=== PATIENT | female | born 1975 | race Caucasian/White ===

== ENCOUNTER 2024-08-18 08:10 | Outpatient (AMB) | payer OTHER, SELFPAY ==
[2024-08-18 08:13] VITALS: BP 122/70; PULSE 76; O2SAT 100; BMI 26.3
--- NOTE | 2024-08-18 08:13 | MHC.OFFVIS ---
Vital Signs 08/18/24 08:13 Height 5 ft 7 in Weight 168 lb BMI 26.3 BP 122/70 Blood Pressure Location Lt brachial Position Sitting Pulse 76 Pulse Source Pulse Oximeter Pulse Oximetry (%) 100 Oxygen Delivery Method Room Air Intake Visit Reasons: Raynauds/CM APT Intake Note: Patient presents for follow up on Raynaud's today Allergies No Known Allergies Allergy (Verified 08/18/24 08:16) HPI HPI Raynauds/CM APT: Details: R IP joint in hands intermittent swelling treated with usually 4 days of naproxen 500mg BID. occurs once every other or 3 months. Raynauds active in right 2nd finger with cold weather. Denies fevers, rash, abdominal pain or any new infections. [facility] Medical History (Updated 08/18/24 @ 08:58 by Kwan Deal MD) delivery delivered Still's disease Raynauds disease Surgical History (Updated 08/18/24 @ 08:19 by Rosey De La O CMA) H/O arthroscopic knee surgery Family History (Updated 08/18/24 @ 08:19 by Rosey De La O CMA) Father Stroke Social History (Updated 08/18/24 @ 08:20 by Rosey De La O CMA) Alcohol intake: current Alcohol intake frequency: 0-2 drinks per day Alcohol type: wine Patient Tobacco Use Status: Never used Tobacco Review of Systems Const All systems reviewed & are unremarkable except as noted in HPI and below Physical Exam Vital Signs: Last Vital Signs Pulse 76 08/18/24 08:13 BP 122/70 08/18/24 08:13 Pulse Ox 100 08/18/24 08:13 Oxygen Delivery Method Room Air 08/18/24 08:13 BMI result Body Mass Index 26.3 Const Other: General: Comfortable CVS: RRR Respiratory: clear to auscultation bilaterally. Good respiratory effort Skin: No lesions seen MSK:Tender R IP joint hand with slight swelling. Good ROM UE and LE. Assessment & Plan Assessment & Plan (1) Adult-onset Still disease: Comment: She has history of adult onset Still's disease admitted to [facility] 06/28/2028 to 07/24/2028 with 1st episode controlled on naproxen 500 mg b.i.d.. She presented with persistent daily high-grade fevers, leukocytosis, polyarthritis, evanescent maculopapular rash, sore throat, splenomegaly on CT abdomen/pelvis, elevated LFTs , negative FERNANDO/RF. Negative infectious and malignancy workup. She has had recurrent inflammatory arthritis flares resolving with naproxen 500 mg b.i.d.. At this time she has has intermittent pain and swelling of right IP joint in her hand. Code(s): M06.1 - Adult-onset Still's disease Category: Medical Plan: Continue to use naproxen 500 mg b.i.d. to treat joint pain and swelling. If flares become more frequent, she will call office. 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 Code(s): I73.01 - Raynaud's syndrome with gangrene Category: Medical Plan: We discussed conservative management Return to clinic 6 months or sooner if needed Orders: Orders Erythrocyte Sedimentation Rate Today M06.1 - Adult-onset Still's disease C Reactive Protein Today M06.1 - Adult-onset Still's disease Alanine Aminotransferase Today Z79.60 - half-way (current) use of unspecified immunomodulators and immunosuppressants Creatinine Today Z79.60 - half-way (current) use of unspecified immunomodulators and immunosuppressants XR hand RT min 3V Today M06.1 - Adult-onset Still's disease Aspartate Amino Transferase Today Z79.60 - 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
--- OUTSIDE RECORDS SUMMARY | 2024-08-19 18:44 | XMS_ITS | Continuity of Care Document ---
Author Organization [facility] Address [address] [place] [address]- Care Team Providers Care Director Educational Radio Name Role Phone Aniya Eldridge MD [id number] Date[facility]s): [facility] - 07/22/24 [facility] [address], [place] [address] Attending Physician: Aniya Eldridge MD Encounter Type: Pre Office Visit Allergies, Adverse Reactions, Alerts No Known Allergies Immunizations Given and Recorded Vaccine Date Status Refusal Reason influenza virus vaccine, inactivated 1 06/18/23 Gi jacinto influenza virus vaccine, inactivated 05/31/21 Leoncio rded influenza virus vaccine, inactivated 06/06/20 Leoncio rded influenza virus vaccine, inactivated 05/10/17 Leoncio rded influenza virus vaccine, inactivated 06/25/16 Give n influenza virus vaccine, inactivated 06/22/15 Give n influenza virus vaccine, inactivated 2 07/26/14 Re corded influenza virus vaccine, inactivated 3 05/01/12 Gi jacinto influenza virus vaccine, inactivated 4 09/19/11 Gi jacinto influenza virus vaccine, inactivated 07/24/10 Leoncio rded influenza virus vaccine, inactivated 5 10/10/09 Gi jacinto influenza virus vaccine, inactivated 07/07/08 Leoncio rded SARS-CoV-2 (COVID-19) mRNA BNT-162b2 vac 09/16/21 Recorded SARS-CoV-2 (COVID-19) mRNA-1273 vaccine 01/05/21 R ecorded SARS-CoV-2 (COVID-19) mRNA-1273 vaccine 12/08/20 R ecorded Influenza Virus Vaccine (oldterm) 06/19/19 Recorde d tetanus/diphtheria/pertussis, acel(Tdap) 6 12/29/10 Given influ virus vac, H1N1, inactive(oldterm) 7 10/10/09 Given Tet/Diphth/Acel, Pertussis (oldterm) 8 10/10/09 Gi jacinto tetanus-diphtheria toxoids (Td) 10/01/00 Recorded 1Result Comment: [facility]- [id number] 2Result Comment: [07/26/2014] per pt 3Admin Note: given w/ o incident 4[facility] Note[facility] 5Admin Note: per pt 6Admin Note: VIS Given 7Admin Note: INFO SHEET GIVEN 8Admin Note: INFO SHEET GIVEN GIVEN W/O INCIDENT Medications Afrin No Drip Severe Congestion 0.05% nasal spray 1 spray, Daily, 0 Refills, Maintenance, 01/07/24 6:55:00 AM EDT, Partial fill upon patient request if the prescription is for a schedule II opioid drug. Start Date: 01/07/24 Status: Ordered Repeat number: 1 Emgality Prefilled Pen 120 mg/mL subcutaneous solution = 120 mg, Subcutaneous Injection, Once, Maintenance Dose. To begin 28 days after loading dose, # 1 kit, 7 Refills, Soft Stop, 12/06/23 1:46:00 PM EDT, [facility], Aimovig is helpful but giving some side effects., 170.18, cm, 07/11/23 8:03:00 EDT, Height Start Date: 12/06/23 Status: Ordered Quantity: 1.0 Unit: kit Repeat number: 8 Multivitamin Daily, 0 Refills, Maintenance, 01/20/21 2:21:00 PM EDT, Partial fill upon patient request if the prescription is for a schedule II opioid drug. Start Date: 01/20/21 Status: Ordered Repeat number: 1 rizatriptan 10 mg oral tablet 1 tablet = 10 mg, By Mouth, Once, PRN for migraine headache, take at onset of bad migraine. No refill in under 30 days,, # 9 tablet, 6 Refills, Soft Stop, 12/06/23 1:41:00 PM EDT, Tablet, [facility], Sumatriptan was ineffective, Zolmitriptan was with mixed results. Rizatriptan is better than the others, 170.18, cm, 07/11/23 8:03:00 EDT, Height Start Date: 12/06/23 Status: Ordered Quantity: 9.0 Unit: tablet Repeat number: 7 ZyrTEC 10 mg oral tablet 1 tablet = 10 mg, By Mouth, Daily, 0 Refills, Maintenance, 01/20/21 2:21:00 PM EDT, Partial fill upon patient request if the prescription is for a schedule II opioid drug. Start Date: 01/20/21 Status: Ordered Repeat number: 1 Problem List Condition Confirmation Course Effective Dates Status Health St atus Informant Adult Still's disease Confirmed Active Insomnia Confirmed Active Major depression Confirmed Active Classic migraine Confirmed Active Unexplained infertility Confirmed Active Urinary incontinence Confirmed Active Social History Social History Type Response Smoking Status Never smoker entered on: 08/25/13 Sex Female Sex Representation Female (finding) Patient Care team information Care Team Personnel Name: Aniya Eldridge MD Position: [facility] Physician - Primary Care Member Role: PCP Address: [address] [place] [address] Adult and Pediatric [facility] [address] Telecom: Care Team Related Persons Name: ERLINDA CONDE Name: SHARON SINCLAIR Insurance Providers Guarantor name: KAYLEE SINCLAIR Health Plan Information #: 1 Payer: [employer] Member Number: [id number] Policy Number: NA Group Number: [id number] Health Plan Information #: 2 Payer: [employer] Member Number: [id number] Policy Number: NA Group Number: [id number]
--- OUTSIDE RECORDS SUMMARY | 2024-08-19 18:44 | XMS_ITS | Data Portability ---
Author Organization [facility], [address] Address [address] [place] [address] Assessment No assessment recorded. Plan of Treatment Reminders Order Date Submit Date Provider Last Modified By Organization Details Last Modified Time Details Appointments None recorded . Lab rapid strep group A, throat 023 01/21/20 [email or web address] [place], [address], 11:45:26 Referral None recorded . Procedures None recorded . Surgeries None recorded . Imaging None recorded . Medication Orders None recorded . Patient TargetsNo targets recorded. Patient Instructions Encounter Date Encounter Id Patient Instructions Last Modified By Organization Details Last Modified Time 01/20/2023 [id number] sore throat: car e instructions [email or web address] Not available 01/20/2023 11:45:26 Reason for Referral None Reported. Results Created Date Observation Date Name Description Value Unit Range Abnormal Flag Note LastModifiedBy Organization Detail LastModifiedTime 01/21/2001/20/2023 rapid strep group A, throa t Unknown Analyte Normal = Negati ve Not Available [address] [place], [address], 01/20/2023 11:23:41 01/21/2001/20/2023 rapid strep group A, throa t Unknown Analyte negati ve Not Available [address] [place], [address], 01/20/2023 11:23:41 Result Notes None recorded. Problems Name Problem SNOMED Code Status Onset Date Resolution Date Notes Provider Name and Address Organization Details Recorded Time Migraine 89020924 Active 023 Kirstin velasquez [facility] 01/20/2023 11:21:41 Problem Notes None recorded. Procedures Surgical History Date Name Laterality Status Provider Name and Address Organization Details Recorded Time 1 delivery completed [facility]irstin [facility] [place] [facility] 01/20/2023 11:22:06 5 Knee arthroscopy/s urgery completed Kirstin Chavarria [place] - [facility] 01/20/2023 11:22:01 Imaging Results None recorded. Procedure Notes None recorded. Medical Equipment None Reported. Allergies No known drug allergies Medications Name Sig Start Date Stop Date Status Note LastModified by Organization Details LastModified Time rizatriptan 10 mg tablet active Not Available Not Available No t Available nortriptyline 25 mg capsule active Not Available Not Availabl e Not Available pantoprazole 40 mg tablet,delayed release active Not Available Not Available Not Available nortriptyline 50 mg capsule active Not Available Not Availabl e Not Available Nasacort active Not Available Not Avai lable Not Available Flowflex COVID-19 Antigen Home Test kit active Not Available Not Available Not Available Vitals Date Recorded Body height Body mass index (BMI) Body weight Body temperature Respiratory rate Heart rate Oxygen saturation Oxygen saturation in Arterial blood by Pulse oximetry Systolic blood pressure Diastolic blood pressure Provider Name and Address Organization Details Last Updated DateTime 3 170.18 cm 29.8 kg/m2 26734.5 5 g 97.3 [degF] 16 /min 100 /min 99 % 99 % 114 mm[Hg] 82 mm[Hg] Kirstin Chavarria [facility] 3 11:23:35 Social History None recorded. Functional Status None recorded. Mental Status None recorded. Family History Nothing Reported. Medical History No medical history recorded. Gynecological History Statement/Question Response Is there any chance of ? No Obstetrics History GPAL:G 0 P 0 0 0 0 Past Encounters Encounter ID Performer Location Encounter Start Date Encounter Closed Date Diagnosis/Indication Diagnosis SNOMED-CT Code Diagnosis ICD10 Code [id number] [address] [place] [address] 10/29/2020 19:36:05 10/29/2020 20:21:33 [id number] Daniel Starr [place] [address] [place] [address] 01/20/2023 10:48:31 01/20/2023 11:54:26 Acute pharyngitis 034066330 J02.9 Health Concerns Section Related Observation LastModified by Organization Detai ls LastModified Time None Recorded Concern Status LastModified by Organization Details LastModified Time None Recorded Advance Directives Directive None Recorded Payers Encounter Date Sequence Insurance Name Policy Number Policy John Covered Member ID John Member ID Guarantor Name 10/29/2020 1 [employer] - CHOICE FUND - OPEN ACCESS PLUS [id number] Radhames Theroux [id number] 1 Radhames Theroux 01/20/2023 1 [employer] - CHOICE FUND - OPEN ACCESS PLUS [id number] Radhames Theroux [id number] 1 Radhames Theroux Notes Date Note Type Note Provider Name and Address Organization Details Recorded Time 01/20/2023 text/html Sore throatRepor jaron bypatient.Notes:47 yo female pt c/o sore throat, hurts to swallow, fever, chills x 3 dTemp to 100last te,p yesterdayno temp today No coughNo difficulty breathing or respiratory distressNo wheezeNo CPNo congestionNo ear painNo Abdominal painNo nauseaNo vomitingNp diarrheaNo myalgiaNo fatigueNo rashNo HANo dizzinessNo recent travelNo known sick contacts Daniel Starr DO [address] [place], [address], [place] - [facility] 01/20/2023 11:51:12 OBGyn Episode No OBEpisode recorded.
== END 2024-08-18 08:55 | disposition home or self-care (01) ==
PROVIDERS: PCP Internal Medicine; Visit Provider Internal Medicine Rheumatology
DX: M06.1 Adult-onset Still's disease (principal); Z79.1 Long term (current) use of non-steroidal anti-inflammatories (NSAID); I73.01 Raynaud's syndrome with gangrene
CPT/HCPCS: 99214

== ENCOUNTER 2024-09-07 09:14 | Outpatient (REF) | payer OTHER, SELFPAY ==
--- NOTE | ~2024-09-07 | XR_ITS ---
CLINICAL HISTORY: M06.1 - Adult-onset Stills disease 3 view right hand Comparison: None Findings: No fractures or dislocations. No significant loss of joint space or osteophytes. No erosions. No radiopaque foreign body. IMPRESSION: 1. No acute findings This document has been electronically signed by: James Nunez MD on 09/12/2024 08:21:14
--- OUTSIDE RECORDS SUMMARY | 2024-09-07 09:18 | XMS_ITS | Data Portability ---
Author Organization [facility], [address] Address [address] [place] [address] Assessment No assessment recorded. Plan of Treatment Reminders Order Date Submit Date Provider Last Modified By Organization Details Last Modified Time Details Appointments None recorded . Lab rapid strep group A, throat 023 01/21/20 [email or web address] [place], [address], 11:45:26 Referral None recorded . Procedures None recorded . Surgeries None recorded . Imaging None recorded . Medication Orders None recorded . Patient TargetsNo targets recorded. Patient Instructions Encounter Date Encounter Id Patient Instructions Last Modified By Organization Details Last Modified Time 01/20/2023 [id number] sore throat: car e instructions [email or web address] Not available 01/20/2023 11:45:26 Reason for Referral None Reported. Results Created Date Observation Date Name Description Value Unit Range Abnormal Flag Note LastModifiedBy Organization Detail LastModifiedTime 01/21/2001/20/2023 rapid strep group A, throa t Unknown Analyte Normal = Negati ve Not Available [address] [place], [address], 01/20/2023 11:23:41 01/21/2001/20/2023 rapid strep group A, throa t Unknown Analyte negati ve Not Available [address] [place], [address], 01/20/2023 11:23:41 Result Notes None recorded. Problems Name Problem SNOMED Code Status Onset Date Resolution Date Notes Provider Name and Address Organization Details Recorded Time Migraine 39287967 Active 023 Kirstin velasquez [facility] 01/20/2023 11:21:41 Problem Notes None recorded. Procedures Surgical History Date Name Laterality Status Provider Name and Address Organization Details Recorded Time 1 delivery completed [facility] [place] [facility]/20/2023 11:22:06 5 Knee arthroscopy/s urgery completed Kirstin Chavarria [place] - [facility] 01/20/2023 11:22:01 Imaging Results [...] Updated DateTime 3 170.18 cm 29.8 kg/m2 91262.5 5 g 97.3 [degF] 16 /min 100 /min 99 % 99 % 114 mm[Hg] 82 mm[Hg] Kirstin Chavarria [facility] 3 11:23:35 Social History None recorded. Functional Status None recorded. Mental Status None recorded. Family History Nothing Reported. Medical History No medical history recorded. Gynecological History Statement/Question Response Is there any chance of ? No Obstetrics History GPAL:G 0 P 0 0 0 0 Past Encounters Encounter ID Performer Location Encounter Start Date Encounter Closed Date Diagnosis/Indication Diagnosis SNOMED-CT Code Diagnosis ICD10 Code [id number] [address] [address] [place] [address] 10/29/2020 19:36:05 10/29/2020 20:21:33 [id number] Daniel Starr DO [address] [address] 01/20/2023 10:48:31 01/20/2023 11:54:26 Acute pharyngitis 971657954 J02.9 Health Concerns Section Related Observation LastModified by Organization Detai ls LastModified Time None Recorded Concern Status LastModified by Organization Details LastModified Time None Recorded Advance Directives Directive None Recorded Payers Encounter Date Sequence Insurance Name Policy Number Policy John Covered Member ID John Member ID Guarantor Name 10/29/2020 1 [employer] - CHOICE FUND - OPEN ACCESS PLUS [id number] Radhames Theroux [id number] 1 Radhames Theroux 01/20/2023 1 [employer] - CHOICE FUND - OPEN ACCESS PLUS [id number] Radhames Theroux [id number] 1 Radhames Theroux Notes Date Note Type [...] Starr DO [address] [place], [address], [place] - [facility] 01/20/2023 11:51:12 OBGyn Episode No OBEpisode recorded.
== END 2024-09-07 09:15 | disposition home or self-care (01) ==
LOC: HO.HMGCX 09:14
PROVIDERS: PCP Internal Medicine; Visit Provider Internal Medicine Rheumatology
DX: M06.1 Adult-onset Still's disease (principal)
CPT/HCPCS: 73130

== ENCOUNTER → 2024-09-07 09:17 | Outpatient (BNV) | payer OTHER, SELFPAY | PROVIDERS: PCP Internal Medicine; Visit Provider Specialist | DX: M06.1 Adult-onset Still's disease (principal) | CPT/HCPCS: 73130 ==

== ENCOUNTER 2025-02-16 08:00 | Outpatient (AMB) | payer OTHER, SELFPAY ==
--- NOTE | 2025-02-16 08:04 | MHC.OFFVIS ---
Vital Signs 02/16/25 08:08 Height 5 ft 7 in Weight 162 lb BMI 25.4 BP 120/70 Pulse 74 Pulse Source Pulse Oximeter Pulse Oximetry (%) 92 Oxygen Delivery Method Room Air Intake Visit Reasons: 6 mo follow up Intake Note: Patient presents for follow up on Raynaud's today. Allergies No Known Allergies Allergy (Verified 02/16/25 08:12) HPI HPI 6 mo follow up: Details: Raynaud's episode involving right second finger one epsiode R knee sharp pain self limited. It can occur when walking and going up stairs. No joint swelling, fevers, abdominal pain, dyspnea or urinary symptoms. [facility] Medical History delivery delivered Still's disease Raynauds disease Surgical History H/O arthroscopic knee surgery Family History Father Stroke Social History Alcohol intake: current Alcohol intake frequency: 0-2 drinks per day Alcohol type: wine Patient Tobacco Use Status: Never used Tobacco Physical Exam Vital Signs: Last Vital Signs Pulse 74 02/16/25 08:08 BP 120/70 02/16/25 08:08 Pulse Ox 92 02/16/25 08:08 Oxygen Delivery Method Room Air 02/16/25 08:08 BMI result Body Mass Index 25.4 Const Other: General: Comfortable CVS: RRR Respiratory: clear to auscultation bilaterally. Good respiratory effort Skin: No lesions seen, no discoloration of fingertips. No digital ulcers. MSK: Tender to palpate right knee medially. No synovitis. Normal range of motion of UE and LE. 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 Rheumatology history: She has history of adult onset Still's disease admitted to [facility] 06/28/2028 to 07/24/2028 with 1st episode controlled on naproxen 500 mg b.i.d.. She presented with persistent daily high-grade fevers, leukocytosis, polyarthritis, evanescent maculopapular rash, sore throat, splenomegaly on CT abdomen/pelvis, elevated LFTs , negative FERNANDO/RF. Negative infectious and malignancy workup. She has had recurrent inflammatory arthritis flares resolving with naproxen 500 mg b.i.d. Code(s): M06.1 - Adult-onset Still's disease Category: Medical Plan: Continue to use naproxen 500 mg b.i.d. to treat joint pain and swelling. If flares become more frequent, she will call office. 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 She has had 1 episode since last visit. Code(s): I73.01 - Raynaud's syndrome with gangrene Category: Medical Plan: Continue conservative management Return to clinic 6 months or sooner if needed (4) Right knee pain: Comment: Intermittent with activity. Code(s): M25.561 - Pain in right knee Category: Medical Plan: Right knee x-ray ordered Discussed importance of regular exercise program and weight loss. She is currently using NOOM and calorie counting. Weight goal for next visit 155 lb to 157 lb PT ordered. Patient prefers to have PT done at her workplace. Requisition given to patient. Return to clinic in 6 months or sooner if needed Orders: Orders XR knee RT 2V Today M25.561 - Pain in right knee PT Evaluation and Treatment Today M25.561 - Pain in right knee Coding Level of Care Code Est Pt Level 4 (53350) Complex EM visit Add On G2211 Diagnoses Adult-onset Still disease M06.1 correction (current) use of non-steroidal anti-inflammatories (nsaid) Z79.1 Raynaud's syndrome with gangrene I73.01 Right knee pain M25.561
--- OUTSIDE RECORDS SUMMARY | 2025-02-16 08:04 | XMS_ITS | Data Portability ---
Author Organization [facility], [address] Address [address] [place] [address] Assessment No assessment recorded. Plan of Treatment Reminders Order Date Submit Date Provider Last Modified By Organization Details Last Modified Time Details Appointments None recorded . Lab rapid strep group A, throat 023 01/21/20 [email or web address] [place], [address], 11:45:26 Referral None recorded . Procedures None recorded . Surgeries None recorded . Imaging None recorded . Medication Orders None recorded . Patient TargetsNo targets recorded. Patient Instructions Encounter Date Encounter Id Patient Instructions Last Modified By Organization Details Last Modified Time 01/20/2023 [id number] sore throat: car e instructions [email or web address] Not available 01/20/2023 11:45:26 Reason for Referral None Reported. Results Created Date Observation Date Name Description Value Unit Range Abnormal Flag Note LastModifiedBy Organization Detail LastModifiedTime 01/21/2001/20/2023 rapid strep group A, throa t Unknown Analyte Normal = Negati ve Not Available [address] [place], [address], 01/20/2023 11:23:41 01/21/2001/20/2023 rapid strep group A, throa t Unknown Analyte negati ve Not Available [address] [place], [address], 01/20/2023 11:23:41 Result Notes None recorded. Problems Name Problem SNOMED Code Status Onset Date Resolution Date Notes Provider Name and Address Organization Details Recorded Time Migraine 18382600 Active 023 Kirstin velasquez [facility] 01/20/2023 11:21:41 Problem Notes None recorded. Procedures Surgical History Date Name Laterality Status Provider Name and Address Organization Details Recorded Time 1 delivery completed Kirstin Chavarria [facility] 01/20/2023 11:22:06 5 Knee arthroscopy/s urgery completed Kirstin Chavarria [facility] 01/20/2023 11:22:01 Imaging Results None [...] Updated DateTime 3 170.18 cm 29.8 kg/m2 42739.5 5 g 97.3 [degF] 16 /min 100 /min 99 % 99 % 114 mm[Hg] 82 mm[Hg] Kirstin Chavarria [facility] 3 11:23:35 Social History None recorded. Functional Status None recorded. Mental Status None recorded. Family History Nothing Reported. Medical History No medical history recorded. Gynecological History Statement/Question Response Is there any chance of ? No Obstetrics History GPAL:G 0 P 0 0 0 0 Past Encounters Encounter ID Performer Location Encounter Start Date Encounter Closed Date Diagnosis/Indication Diagnosis SNOMED-CT Code Diagnosis ICD10 Code Diagnosis Note [id number] [address] [place] [address] 10/29/2020 19:36:05 10/29/2020 20:21:33 [id number] Daniel Starr DO [address] [place] [address] 01/20/2023 10:48:31 01/20/2023 11:54:26 Acute pharyngitis 103968410 J02.9 Rapid strep NEGATIVE Likely viral etiology Recommend fluids and restHumidi fied airibu/tyl enol prn pain/fever Salt water gargles recommend that they change toothbrush sterilize anything else that touches their mouth Patient advised to follow up as needed for worsening symptoms or no improvemen t. Discussed concerning red flags with patient and reasons to follow up in the Emergency Department urgently. Health Concerns Section Related Observation LastModified by Organization Detai ls LastModified Time None Recorded Concern Status LastModified by Organization Details LastModified Time None Recorded Advance Directives Directive None Recorded Payers Insurance Date Sequence Insurance Name Policy Number Policy John Covered Member ID John Member ID Guarantor Name 01/20/2023 1 NOEPAMELA [id number] Radhames Estrellita [id number] Radhames Haro Notes Date Note Type Note Provider Name [...] dizzinessNo recent travelNo known sick contacts Daniel Starr, DO [address] [place], [address], [place] - [facility] 01/20/2023 11:51:12 OBGyn Episode No OBEpisode recorded.
[2025-02-16 08:08] VITALS: BP 120/70; PULSE 74; O2SAT 92; BMI 25.4
== END 2025-02-16 08:30 | disposition home or self-care (01) ==
LOC: HO.RHES 08:01
PROVIDERS: PCP Internal Medicine; Visit Provider Internal Medicine Rheumatology
DX: M06.1 Adult-onset Still's disease (principal); Z79.1 Long term (current) use of non-steroidal anti-inflammatories (NSAID); I73.01 Raynaud's syndrome with gangrene; M25.561 Pain in right knee
CPT/HCPCS: 99214

== ENCOUNTER → 2025-02-16 08:00 | Outpatient (BNVA) | payer OTHER, SELFPAY | PROVIDERS: PCP Internal Medicine; Visit Provider Internal Medicine Rheumatology ==

== ENCOUNTER 2025-02-16 08:33 | Outpatient (REF) | payer OTHER, SELFPAY ==
[2025-02-16 17:57] LABS: MANUAL DIFF FLAG NO
[2025-02-16 18:22] LABS: Basophils Percent Auto 0.7 % (0-2); Eosinophils Absolute Auto 0.1 X10*3/uL (0.0-0.4); Eosinophils Percent Auto 1.8 % (0-4); Hematocrit 39.2 % (37.0-47.0); Hemoglobin 12.9 g/dl (12.0-16.0); Imm Gran Abs Auto 0.01 X10*3/uL (0.00-0.03); Imm Gran Pct Auto 0.2 % (0.0-0.4); Lymphocytes Absolute Auto 2.4 X10*3/uL (1.2-4.9); Lymphocytes Percent Auto 41.7 % (20-40); Mean Corpuscular HGB Conc 32.9 g/dl (31.0-35.0); Mean Corpuscular Hemoglobin 29.1 pg (27.0-33.0); Mean Corpuscular Volume 88.5 fL (80.0-98.0); Mean Platelet Volume 10.5 fL (9.4-12.3); Monocytes Absolute Auto 0.4 X10*3/uL (0.1-1.2); Monocytes Percent Auto 7.5 % (2-11); Neutrophils Absolute Auto 2.8 x10*3/uL (2.0-8.3); Neutrophils Percent Auto 48.1 % (45-73); Platelet Count 290 X10*3/uL (160-400); Red Blood Count 4.43 X10*6/uL (4.20-5.50); White Blood Count 5.7 X10*3/uL (4.8-10.8)
[2025-02-16 18:44] LABS: Alanine Aminotransferase 12 U/L (0-31); Aspartate Amino Transferase 24 U/L (5-31); C Reactive Protein 0.31 mg/dL (< or = 0.50); Estimated Glomerular Filt Rate > 60
[2025-02-16 18:49] LABS: Ferritin 55 ng/mL (10-250)
[2025-02-16 19:32] LABS: Erythrocyte Sedimentation Rate 5 MM/HR (0-20)
== END 2025-02-16 08:34 | disposition home or self-care (01) ==
LOC: HO.HKASLDS 08:33
PROVIDERS: Visit Provider Internal Medicine Rheumatology
DX: M06.1 Adult-onset Still's disease (principal); Z79.60 Long term (current) use of unspecified immunomodulators and immunosuppressants
CPT/HCPCS: 36415; 82565; 82728; 84450; 84460; 85025; 85652; 86140

== ENCOUNTER 2025-02-20 09:33 | Outpatient (REF) | payer OTHER, SELFPAY ==
--- NOTE | ~2025-02-20 | XR_ITS ---
CLINICAL HISTORY: M25.561 - Pain in right knee 2 view right knee Comparison: None Findings: Bones intact. No dislocations. No significant arthritic change or erosions. No joint effusion. No radiopaque foreign body. IMPRESSION: 1. No acute findings. This document has been electronically signed by: James Nunez MD on 02/22/2025 09:00:30
--- OUTSIDE RECORDS SUMMARY | 2025-02-20 09:35 | XMS_ITS | Data Portability ---
Author Organization [facility], [address] Address [address] [place] [address] Assessment No assessment recorded. Plan of Treatment Reminders Order Date Submit Date Provider Last Modified By Organization Details Last Modified Time Details Appointments None recorded . Lab rapid strep group A, throat 023 01/21/20 [email or web address], [address] [place], [address], 11:45:26 Referral None recorded . Procedures None recorded . Surgeries None recorded . Imaging None recorded . Medication Orders None recorded . Patient TargetsNo targets recorded. Patient Instructions Encounter Date Encounter Id Patient Instructions Last Modified By Organization Details Last Modified Time 01/20/2023 [id number] sore throat: car e instructions [email or web address] Not available 01/20/2023 11:45:26 Reason for Referral None Reported. Results Created Date Observation Date Name Description Value Unit Range Abnormal Flag Note LastModifiedBy Organization Detail LastModifiedTime 01/21/2001/20/2023 rapid strep group A, throa t Unknown Analyte Normal = Negati ve Not Available [address] [place], [address], 01/20/2023 11:23:41 01/21/2001/20/2023 rapid strep group A, throa t Unknown Analyte negati ve Not Available [address] [place], [address], 01/20/2023 11:23:41 Result Notes None recorded. Problems Name Problem SNOMED Code Status Onset Date Resolution Date Notes Provider Name and Address Organization Details Recorded Time Migraine [id number] Active 023 Kirstin velasquez [facility] 01/20/2023 11:21:41 Problem Notes None recorded. Procedures Surgical History Date Name Laterality Status Provider Name and Address Organization Details Recorded Time 1 delivery completed Kirstin Chavarria [facility] 01/20/2023 11:22:06 5 Knee arthroscopy/s urgery completed Kirstin Chavarria [facility] 01/20/2023 11:22:01 Imaging Results None [...] Updated DateTime 3 170.18 cm 29.8 kg/m2 24926.5 5 g 97.3 [degF] 16 /min 100 /min 99 % 99 % 114 mm[Hg] 82 mm[Hg] Kirstin Chavarria [facility] 3 11:23:35 Social History None recorded. [...] SNOMED-CT Code Diagnosis ICD10 Code Diagnosis Note [id number] [place] [address] 10/29/2020 19:36:05 10/29/2020 20:21:33 [id number] Daniel Starr DO [address] [place] [address] 01/20/2023 10:48:31 01/20/2023 11:54:26 Acute pharyngitis [id number] J02.9 Rapid strep NEGATIVE Likely viral etiology [...] Member ID Guarantor Name 01/20/2023 1 NOEPAMELA [id number] Radhames Estrellita [id number] 1 Radhames Haro Notes Date Note Type [...] Starr, DO [address] [place], [address], [place] - [facility] 01/20/2023 11:51:12 OBGyn Episode No OBEpisode recorded.
== END 2025-02-20 09:34 | disposition home or self-care (01) ==
LOC: HO.HMGCX 09:33
PROVIDERS: PCP Internal Medicine; Visit Provider Internal Medicine Rheumatology
DX: M25.561 Pain in right knee (principal)
CPT/HCPCS: 73560

== ENCOUNTER → 2025-02-20 09:38 | Outpatient (BNV) | payer OTHER, SELFPAY | PROVIDERS: PCP Internal Medicine; Visit Provider Specialist | DX: M25.561 Pain in right knee (principal) | CPT/HCPCS: 73560 ==

== ENCOUNTER 2025-08-17 07:08 | Outpatient (REF) | payer OTHER, SELFPAY ==
--- OUTSIDE RECORDS SUMMARY | 2025-08-17 07:13 | XMS_ITS | Clinical Summary ---
Author Organization [facility] Address [address] [place] [address] Care Team Providers Care Meteorological Equipment Repairer Name Role Phone Unavailable Primary Care Provider Unavailabl e Social History Tobacco Use Types Packs/Day Years Used Date Smoking Tobacco: Never Assessed Comments Unknown Sex and Gender Information Value Date Recorded Sex Assigned at Not on file Legal Sex Female 5:03 PM EDT Gender Identity Not on file Sexual Orientation Not on file Plan of Treatment Health Maintenance Due Date Last Done Comments Hepatitis C Virus Screening 1976 HIV Screening 1989 DTaP/Tdap/Td Vaccines (1 - Tdap) 1995 Hepatitis B Vaccines (1 of 3 - 19+ 3-dose series) 1995 COVID-19 Vaccine ( - 2024-2 6 season) 2025 Pneumococcal Vaccine: Pediat jaron (0-5 Years) and At-Risk Patients (6 to 49 Years) Aged Out No longer eligible b ased on patient's age to complete this topic
[2025-08-17 10:50] LABS: MANUAL DIFF FLAG NO
[2025-08-17 11:03] LABS: Hematocrit 40.4 % (37.0-47.0); Hemoglobin 13.8 g/dl (12.0-16.0); Imm Gran Abs Auto 0.01 X10*3/uL (0.00-0.03); Imm Gran Pct Auto 0.2 % (0.0-0.4); Lymphocytes Absolute Auto 2.8 X10*3/uL (1.2-4.9); Mean Corpuscular HGB Conc 34.2 g/dl (31.0-35.0); Mean Corpuscular Hemoglobin 30.0 pg (27.0-33.0); Mean Corpuscular Volume 87.8 fL (80.0-98.0); NRBC Abs Auto 0.000 X10*3/uL (0.0-0.012); NRBC Pct Auto 0.0 /100WBC (0.0-0.2); Platelet Count 295 X10*3/uL (160-400); Red Blood Count 4.60 X10*6/uL (4.20-5.50); White Blood Count 5.8 X10*3/uL (4.8-10.8)
[2025-08-17 11:25] LABS: Alanine Aminotransferase 14 U/L (0-31); Aspartate Amino Transferase 22 U/L (5-31); Estimated Glomerular Filt Rate > 60
[2025-08-17 11:41] LABS: Erythrocyte Sedimentation Rate 5 MM/HR (0-20)
== END 2025-08-17 07:09 | disposition home or self-care (01) ==
LOC: HO.HMGCLDS 07:08
PROVIDERS: PCP Internal Medicine; Visit Provider Internal Medicine Rheumatology
DX: Z79.899 Other long term (current) drug therapy (principal)
CPT/HCPCS: 36415; 82565; 84450; 84460; 85025; 85652; 86140

== ENCOUNTER 2025-08-19 07:53 | Outpatient (AMB) | payer OTHER, SELFPAY ==
--- NOTE | 2025-08-19 08:03 | MHC.OFFVIS ---
Vital Signs 08/19/25 08:04 Height 5 ft 7 in Weight 156 lb 4.924 oz BMI 24.5 BP 126/80 Blood Pressure Location Rt brachial Position Sitting Pulse 81 Pulse Source Pulse Oximeter Pulse Oximetry (%) 90 L Oxygen Delivery Method Room Air Intake Visit Reasons: 6 months Intake Note: Patient presents for follow up on Raynaud's today. Accompanied by: Self / Same As Patient Allergies No Known Allergies Allergy (Verified 08/19/25 08:03) HPI HPI 6 months: Details: She feels well. She lost weight and has been going to the gym 3 to 4 times a week. No recent joint pain. No joint swelling. No fevers, abdominal pain, or rash. Denies Raynaud's phenomenon. [facility] Medical History delivery delivered Still's disease Raynauds disease Surgical History H/O arthroscopic knee surgery Family History Father Stroke Social History Alcohol intake: current Alcohol intake frequency: 0-2 drinks per day Alcohol type: wine Patient Tobacco Use Status: Never used Tobacco Physical Exam Vital Signs: Last Vital Signs Pulse 81 08/19/25 08:04 BP 126/80 08/19/25 08:04 Pulse Ox 90 L 08/19/25 08:04 Oxygen Delivery Method Room Air 08/19/25 08:04 BMI result Body Mass Index 24.5 Const Other: General: Comfortable CVS: RRR Respiratory: clear to auscultation bilaterally. Good respiratory effort Skin: No lesions seen, no discoloration of fingertips. No digital ulcers. MSK: No tender joints. No synovitis. Normal range of motion of UE and LE. 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 Labs from August 2025 normal. Rheumatology history: She has history of adult onset Still's disease admitted to [facility] 06/28/2028 to 07/24/2028 with 1st episode controlled on naproxen 500 mg b.i.d.. She presented with persistent daily high-grade fevers, leukocytosis, polyarthritis, evanescent maculopapular rash, sore throat, splenomegaly on CT abdomen/pelvis, elevated LFTs , negative FERNANDO/RF. Negative infectious and malignancy workup. She has had recurrent inflammatory arthritis flares resolving with naproxen 500 mg b.i.d. Code(s): M06.1 - Adult-onset Still's disease Category: Medical Plan: Continue to use naproxen 500 mg b.i.d. to treat joint pain and swelling. If flares become more frequent, she will call office. 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 No flare Code(s): I73.01 - Raynaud's syndrome with gangrene Category: Medical Plan: Continue conservative management Return to clinic in 1 year sooner if needed (4) Right knee pain: Comment: Resolved. X-ray is normal. Weight loss is helping. Code(s): M25.561 - Pain in right knee Category: Medical Plan: Discussed Importance of having a regular exercise routine. She currently goes to the gym 3 to 4 times a week. Return to clinic in 1 year sooner if needed Coding Level of Care Code Est Pt Level 4 (78063) Add On Problem Visit Only Diagnoses Adult-onset Still disease M06.1 halfway (current) use of non-steroidal anti-inflammatories (nsaid) Z79.1 Raynaud's syndrome with gangrene I73.01 Right knee pain M25.561
[2025-08-19 08:04] VITALS: BP 126/80; PULSE 81; O2SAT 90; BMI 24.5
--- OUTSIDE RECORDS SUMMARY | 2025-08-19 08:04 | XMS_ITS | Clinical Summary ---
Author Organization [facility] Address [address] [place] [address] Care Team Providers Care Information Assurance Officer Name Role Phone Unavailable Primary Care Provider [...]
== END 2025-08-19 08:26 | disposition home or self-care (01) ==
LOC: HO.RHES 07:54
PROVIDERS: PCP Internal Medicine; Visit Provider Internal Medicine Rheumatology
DX: M06.1 Adult-onset Still's disease (principal); Z79.1 Long term (current) use of non-steroidal anti-inflammatories (NSAID); I73.01 Raynaud's syndrome with gangrene; M25.561 Pain in right knee
CPT/HCPCS: 99214